=== PATIENT | male | born 1980 | race Two or more races ===

== ENCOUNTER 2016-07-29 21:16 | Emergency (ER) | payer MEDICAID ==
[~2016-07-29] VITALS: Ht 165.1 cm; Wt 77.1 kg
[2016-07-29 21:35] VITALS: BP 140/85
== END 2016-07-29 22:51 | disposition home or self-care (01) ==
LOC: ER 21:19
DX: S61.216A Laceration without foreign body of right little finger without damage to nail, initial encounter (principal); W45.8XXA Other foreign body or object entering through skin, initial encounter; Y93.89 Activity, other specified; Y92.89 Other specified places as the place of occurrence of the external cause; Y99.8 Other external cause status
CPT/HCPCS: A4606; A6402; Z7610

== ENCOUNTER 2023-08-11 18:38 | Emergency (ER) | payer MEDICAID, OTHER ==
[~2023-08-11] VITALS: Ht 165.1 cm; Wt 69.9 kg
[2023-08-11 18:56] VITALS: BP 134/96; TEMP 98.1; O2SAT 98
[2023-08-11] MEDS ORDERED: IBUP-1957 PO (19:46)
[2023-08-11] MEDS ORDERED: ACET-2605 PO (19:46)
[2023-08-11] MEDS ORDERED: CIPR7.5D9 LEFT EAR (19:46)
[2023-08-11] MEDS: IBUPROFEN 400 MG TABLET PO ONE (20:10)
[2023-08-11] MEDS ORDERED: IBUPROFEN 400 MG TABLET ONE (20:10)
[2023-08-11] MEDS ORDERED: LIDOCAINE 5% (PATCH) 1 EA PATCH TP ONE (20:10)
[2023-08-11] MEDS: LIDOCAINE 5% (PATCH) 1 EA PATCH TP ONE (20:10)
== END 2023-08-11 22:51 | disposition home or self-care (01) ==
LOC: ER 18:48
DX: H60.92 Unspecified otitis externa, left ear (principal); M25.512 Pain in left shoulder